=== PATIENT | female | born 1960 | race Caucasian/White ===

== ENCOUNTER → 2019-01-03 | Outpatient (CLI) | payer BC ==
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
== END | disposition home or self-care (01) ==
LOC: EEG 10:52
PROVIDERS: ATTEND Family Medicine Adult Medicine
DX: F07.81 Postconcussional syndrome (principal); G40.909 Epilepsy, unspecified, not intractable, without status epilepticus
CPT/HCPCS: 95819